=== PATIENT | male | born 1950 | race Caucasian/White ===

== ENCOUNTER 2024-05-01 00:15 | Emergency (ER) | payer MEDICARE, OTHER, SELFPAY ==
[2024-05-01 00:17] VITALS: BP 142/80
--- NOTE | 2024-05-01 00:56 | EDRN ---
up into his L hand and has a tingling up into his arm. Pt has bruising across hand and redness posterior wrist. Fingers swollen.
--- NOTE | 2024-05-01 00:58 | ED.GENMED ---
Addendum entered and electronically signed by Wesley Nguyen MD 05/01/24 02:04:
patient placed in ulnar gutter splint and given orthopedic surgery follow up
Original Note:
History of Present Illness
General
Chief Complaint: Swelling
Time Seen by Provider: 05/01/24 00:51
History of Present Illness
History of Present Illness:
Patient is a 74-year-old man who is otherwise healthy presenting to the emergency department with finger pain. Patient states that he crushed his left fifth finger in the tailgate and noticed some swelling and pain at the base of his left pinky.
He did take Advil and ice and did lisa tape his fingers. However he noticed that the swelling was worsening and he was having some shooting pain from his wrist to his upper arm. No numbness tingling. No weakness. No fevers or chills.
Past History
Past History
ED Past Medical History: Other (Restless leg syndrome); Negative HTN, Hypercholesterolemia, IDDM or NIDDM
Social History
Tobacco: Non-smoker
Phy Exam
Physical Exam
Physical Exam:
GENERAL: in no acute distress
HEENT: normocephalic, extraocular movements intact, moist oral mucosa
NECK: normal inspection
RESPIRATORY: no respiratory distress
CARDIOVASCULAR: regular rate and rhythm
EXTREMITIES: Left upper extremity with swelling to the hand and some erythema to palmar aspect of the wrist as well as over the distal radius on the dorsal side with some erythematous streaking. Tenderness to the proximal phalanx of the left fifth
finger. Fifth MCP joint with some erythema and a punctate scab. Full range of motion. No sensory deficits. When I did do press on the palmar side of the wrist does reproduce the shooting pain
NEUROLOGIC: awake and alert, moves all extremities
SKIN: warm
Scores
Heart Failure Risk
Heart Failure Risk Score: Not Applicable
Course
Orders/Labs/Results
Orders:
Orders
05/01/24 00:57
CR Finger(s)/thumb Min 2 Vw Lt Urgent
Comment:
Reason For Exam: pinky tenderness at base
05/01/24 01:35
Aluminium Finger Splint Left ONCE
05/01/24 01:37
Cephalexin Monohydrate [Keflex] 500 mg PO NOW STA
Vital Signs
Initial and Last Documented VS:
Initial Vital Signs
Temp Pulse Resp BP Pulse Ox
98.1 F 80 20 142/80 96
05/01/24 00:17 05/01/24 00:17 05/01/24 00:17 05/01/24 00:17 05/01/24 00:17
Last Documented Vital Signs
Temp Pulse Resp BP Pulse Ox
98.1 F 80 20 142/80 96
05/01/24 00:17 05/01/24 00:17 05/01/24 00:17 05/01/24 00:17 05/01/24 00:17
MDM/Problems Addressed
Differential Diagnosis Includes:
Patient is a 74-year-old right-handed man presenting to the emergency department with hand swelling and pain after having his finger crushed in the tailgate. Vitals unremarkable exam does show diffuse swelling to the hand with point tenderness
over the proximal phalanx of the left pinky as well as some associated erythema and streaking. Concern for fracture as well as developing cellulitis with the source as a punctate scab over his MCP. The shooting pain is likely neuropathy given the
swelling. Will obtain x-ray
*Critical Care Note
Total Time (30-74mins, 75-104mins- exclusive of procedures): Not Applicable
Update Note
Update Note:
X-ray per my interpretation was fracture of the proximal phalanx with no significant displacement. Patient was placed in finger splint. Patient advised to ice and elevate it. I did offer an Dante wrap for compression of the swelling of the hand and
wrist however patient declined at this time. Patient educated on using Tylenol Motrin as well. Patient will follow-up with PCP/orthopedic surgery. Strict return precautions given. Will discharge at this time.
ED Attending Note
-
Portions of this chart may have been created with voice recognition software.� Occasional wrong word or��sound alike� substitutions may have occurred due to the inherent limitations of voice recognition software.
Discharge Plan
Departure
Patient Disposition: Home (Routine Discharge)
Date of Disposition: 05/01/24
Time of Disposition: 01:36
Patient with high blood pressure during this ER visit?: No
Discharge Problem:
Fracture of proximal phalanx of digit of left hand
Instructions: Finger Fracture ED
Prescriptions:
New
cephalexin 500 mg capsule
500 mg PO QID 7 Days Qty: 28 0RF
No Action
indomethacin 25 MG capsule
25 mg PO TID Qty: 30 0RF
Rx Instructions:
with food
Referrals:
Mirta Roberts MD [Family Provider] -
Activity Restrictions/Additional Instructions:
You were seen in the Emergency Department today for a finger fracture. We did place you in a splint. Please follow-up with your primary care doctor or an orthopedic surgeon. If you develop numbness tingling color changes or worsening swelling or
pain please take off the splint and loosen it and then immediately come to the emergency department.
We would like for you to follow up with your primary care physician for further evaluation. If you experience fever, worsening of your symptoms, or develop any other new or concerning symptoms, please return to the Emergency Department immediately.
Please see the attached sheet for additional information.
Interventions
Interventions:
*Risk Screen - Suicide Last Done: 05/01/24 00:17
*General Assessment Last Done: 05/01/24 00:50
*Neglect/Abuse Screening Last Done: 05/01/24 00:17
ED- Fall Risk Assessment Last Done: 05/01/24 00:50
*ED COVID-19 Vaccine History Last Done: 05/01/24 00:50
ED- Cardiac Assessment Last Done: 05/01/24 00:50
ED-Musculoskeletal Assessment Last Done: 05/01/24 00:50
ED- Pulmonary Assessment Last Done: 05/01/24 00:50
ED-Skin Assessment Last Done: 05/01/24 00:50
Discharge Date and Time
Print Language: [id number]
[2024-05-01] MEDS: KEFLEX 500 MG PO (02:22)
== END 2024-05-01 02:30 | disposition home or self-care (01) ==
LOC: EMR 00:15
PROVIDERS: EMERGENCY PHYSICIAN Student in an Organized Health Care Education/Training Program; FAMILY PHYSICIAN Family Medicine
DX: S62.617A Displaced fracture of proximal phalanx of left little finger, initial encounter for closed fracture (principal); W23.0XXA Caught, crushed, jammed, or pinched between moving objects, initial encounter; G25.81 Restless legs syndrome; E11.9 Type 2 diabetes mellitus without complications; E78.00 Pure hypercholesterolemia, unspecified
CPT/HCPCS: 99283; 29125; 73140

== ENCOUNTER → 2025-03-29 08:29 | Outpatient (REF) | payer MEDICARE, OTHER, SELFPAY | LOC: REG 08:29 | PROVIDERS: ATTENDING PHYSICIAN Internal Medicine | DX: J45.991 Cough variant asthma (principal) | CPT/HCPCS: 71046 ==